=== PATIENT | female | born 1995 ===

== ENCOUNTER 2017-02-01 04:45 | Emergency (ER) | payer SELFPAY ==
[2017-02-01 04:52] VITALS: TEMP 98.1
[2017-02-01] MEDS ORDERED: Sodium Chloride 0.9% 1,000 ML IV STA (04:58)
--- NOTE | 2017-02-01 05:03 | ED PDOC ---
HPI: Psych/Substance Abuse Time Seen by Provider: 02/01/17 04:48 Chief Complaint (Nursing): Alcohol Ingestion Chief Complaint (Provider): ETOH History Per: Patient History/Exam Limitations: no limitations Onset/Duration Of Symptoms: Unknown Current Symptoms Are (Timing): Still Present Modifying Factor(s): Alcohol Additional History Per: Patient Additional Complaint(s): 21 y/o female brought in by EMS for public intoxication. She denies and medical complaints at this time. Past Medical History Vital Signs: Last Vital Signs Temp 98.1 F 02/01/17 04:49 Pulse 82 02/01/17 04:49 Resp 16 02/01/17 04:49 BP 88/53 L 02/01/17 04:49 Pulse Ox 97 02/01/17 04:49 - Family History Family History: States: No Known Family Hx - Allergies Allergies/Adverse Reactions: Allergies Allergy/AdvReac Type Severity Reaction Status Date / Time No Known Allergies Allergy Verified 02/01/17 04:52 Review of Systems ROS Statement: Except As Marked, All Systems Reviewed And Found Negative Physical Exam - Reviewed Nursing Documentation Reviewed: Yes Vital Signs Reviewed: Yes - Physical Exam Appears: Positive for: Well, Non-toxic, No Acute Distress Head Exam: Positive for: ATRAUMATIC, NORMAL INSPECTION, NORMOCEPHALIC Skin: Positive for: Normal Color, Warm, DRY Eye Exam: Positive for: EOMI, Normal appearance, PERRL ENT: Positive for: Normal ENT Inspection Neck: Positive for: Normal, Painless ROM Cardiovascular/Chest: Positive for: Regular Rate, Rhythm Respiratory: Positive for: CNT, Normal Breath Sounds Gastrointestinal/Abdominal: Positive for: Normal Exam, Bowel Sounds, Soft Back: Positive for: Normal Inspection Extremity: Positive for: Normal ROM Neurologic/Psych: Positive for: Alert, Oriented, Mood/Affect (flattened), Other (Speech slurred) - Laboratory Results Result Diagrams: 02/01/17 05:15 02/01/17 05:15 - ECG O2 Sat by Pulse Oximetry: 97 (RA) Pulse Ox Interpretation: Normal Medical Decision Making Medical Decision Making: Time: 05:02 Impression: 21 y/o female here for public intoxication. Plan: - IVF - Labs - UA 06:27a: patient resting comfortably. Vitals stable. Patient signed out to Dr. Gibson pending sobriety. Scribe Attestation: Documented by Phyllis Mathis acting as a scribe for Inocencio Menard MD. Scribe Attestation: All medical record entries made by the Scribe were at my direction and personally dictated by me. I have reviewed the chart and agree that the record accurately reflects my personal performance of the history, physical exam, medical decision making, and the department course for this patient. I have also personally directed, reviewed, and agree with the discharge instructions and disposition. Disposition - Clinical Impression Clinical Impression: Alcohol intoxication - Patient ED Disposition Is Patient to be Admitted: Transfer of Care - Disposition Referrals: [facility] [Outside] Disposition Time: 07:00 Condition: FAIR Instructions: Alcohol Intoxication (ED) Patient Signed Over To: Bridger Gibson Handoff Comments: pending clinical sobriety
[2017-02-01 05:38] LABS: BASO # 0.1 K/uL (0.0-0.2); BASO % 0.7 % (0.0-2.0); EOS # 0.1 K/uL (0.0-0.7); EOS % 0.5 % (0.0-4.0); HEMATOCRIT 37.6 % (34.0-47.0); LYMPH # 2.4 K/uL (1.0-4.3); LYMPH % 24.4 % (20.0-40.0); MEAN CELL VOLUME 90.9 fl (81.0-99.0); MEAN CORPUSCULAR HEMOGLOBIN 29.7 pg (27.0-31.0); MEAN CORPUSCULAR HGB CONC 32.7 g/dL (33.0-37.0); MEAN PLATELET VOLUME 8.1 fl (7.2-11.7); MONO # 0.4 K/uL (0.0-0.8); MONO % 4.3 % (0.0-10.0); NEUT # 6.8 K/uL (1.8-7.0); NEUT % 70.1 % (50.0-75.0); RED CELL DISTRIBUTION WIDTH 12.7 % (11.5-14.5); WHITE BLOOD COUNT 9.6 K/uL (4.8-10.8)
[2017-02-01 05:55] LABS: ALB/GLOB RATIO 1.4 (1.0-2.1); ALCOHOL SERUM 222 mg/dl (0-10); ALKALINE PHOSPHATASE 71 U/L (38-126); ALT/SGPT 27 U/L (9-52); AST/SGOT 25 U/L (14-36); BILIRUBIN,TOTAL 0.6 mg/dl (0.2-1.3); BLOOD UREA NITROGEN 14 mg/dl (7-17); CALCIUM 9.2 mg/dL (8.4-10.2); CARBON DIOXIDE 22 mmol/L (22-30); CHLORIDE 109 mmol/L (98-107); GFR AFRICAN-AMERICAN > 60; GLUCOSE,RANDOM 85 mg/dL (65-105); POTASSIUM 3.6 MMOL/L (3.6-5.0); SODIUM 146 mmol/l (132-148); TOTAL PROTEIN 8.2 G/DL (6.3-8.2)
[2017-02-01 07:27] VITALS: RESP 18
--- NOTE | 2017-02-01 08:08 | ED PDOC ---
- Laboratory Results Result Diagrams: 02/01/17 05:15 02/01/17 05:15 - ECG O2 Sat by Pulse Oximetry: 100 - Progress Re-evaluation Time: 08:07 Condition: Improved (Awake alert no focal neuro deficits) Disposition - Clinical Impression Clinical Impression: Alcohol intoxication - POA Present On Arrival: None - Disposition Referrals: [facility] [Outside] Disposition: Routine/Home Disposition Time: 08:08 Condition: FAIR Instructions: Alcohol Intoxication (ED)
[2017-02-01 08:25] VITALS: BP 120/62; PULSE 82
[2017-02-01 20:08] VITALS: O2SAT 97
== END 2017-02-01 08:44 | disposition home or self-care (01) ==
LOC: H.ER 04:45
DX: F10.129 Alcohol abuse with intoxication, unspecified (principal)
CPT/HCPCS: 80053; 82948; 85025; 96360; 99282; G0480; J7040